=== PATIENT | female | born 1960 | race Caucasian/White ===

== ENCOUNTER → 2017-06-06 | Outpatient (CLI) | payer BC ==
--- NOTE | 2017-06-06 08:35 | MM ---
Reason for exam: additional evaluation requested from prior study. Last mammogram was performed 1 year ago. History: Patient is postmenopausal. Family history of breast cancer in paternal aunt at age 50. Physical Findings: Nurse did not find any significant physical abnormalities on exam. MG 3D Diag Mammo W/Cad JOSSIE Bilateral CC and MLO view(s) were taken. ML view(s) were taken of the right breast. Prior study comparison: June 07, 2016, right breast MG work up mamm w CAD RT. June 02, 2016, bilateral MG screening mammo w CAD. The breast tissue is heterogeneously dense. This may lower the sensitivity of mammography. Right 6mm focal asymmetry lower inner quadrant. These results were verbally communicated with the patient and result sheet given to the patient on 06/06/17. ASSESSMENT: Incomplete: need additional imaging evaluation, BI-RAD 0 RECOMMENDATION: Ultrasound of the right breast.
--- NOTE | 2017-06-06 08:37 | USB ---
Reason for exam: additional evaluation requested from abnormal screening. History: Patient is postmenopausal. Family history of breast cancer in paternal aunt at age 50. US Breast Limited RT Right breast ultrasound demonstrates no cystic or solid lesion seen. These results were verbally communicated with the patient and result sheet given to the patient on 06/06/17. ASSESSMENT: Probably benign, BI-RAD 3 RECOMMENDATION: Follow-up diagnostic mammogram of the right breast in 6 months.
== END | disposition home or self-care (01) ==
LOC: RADMAMWWP 06:59
PROVIDERS: ATTEND Obstetrics & Gynecology
DX: R92.8 Other abnormal and inconclusive findings on diagnostic imaging of breast (principal); R92.2 Inconclusive mammogram
CPT/HCPCS: 76642; G0204; G0279

== ENCOUNTER → 2017-12-26 | Outpatient (CLI) | payer BC ==
--- NOTE | 2017-12-26 15:03 | MM ---
Reason for exam: follow-up at short interval from prior study. Last mammogram was performed 7 months ago. History: Patient is postmenopausal. Family history of breast cancer in paternal aunt at age 50. Physical Findings: Nurse did not find any significant physical abnormalities on exam. MG Diagnostic Mammo RT w CAD CC and MLO view(s) were taken of the right breast. Prior study comparison: June 06, 2017, bilateral MG 3d diag mammo w/cad JOSSIE. June 07, 2016, right breast MG work up mamm w CAD RT. The breast tissue is heterogeneously dense. This may lower the sensitivity of mammography. There is chronic nodularity in the right breast. There is no discrete abnormality. These results were verbally communicated with the patient and result sheet given to the patient on 12/26/17. ASSESSMENT: Benign, BI-RAD 2 RECOMMENDATION: Routine screening mammogram of both breasts in 6 months. Back on schedule.
== END | disposition home or self-care (01) ==
LOC: RADMAMWWP 14:22
PROVIDERS: ATTEND Obstetrics & Gynecology
DX: R92.8 Other abnormal and inconclusive findings on diagnostic imaging of breast (principal)
CPT/HCPCS: 77065

== ENCOUNTER → 2018-07-10 | Outpatient (CLI) | payer BC ==
--- NOTE | 2018-07-11 08:36 | MM ---
Reason for exam: screening (asymptomatic). Last mammogram was performed 6 months ago. History: Patient is postmenopausal. Family history of breast cancer in paternal aunt at age 50. Physical Findings: A clinical breast exam by your physician is recommended on an annual basis and results should be correlated with mammographic findings. MG Screening Mammo w CAD Bilateral CC and MLO view(s) were taken. Prior study comparison: December 26, 2017, right breast MG diagnostic mammo RT w CAD. June 06, 2017, bilateral MG 3d diag mammo w/cad JOSSIE. The breast tissue is heterogeneously dense. This may lower the sensitivity of mammography. No significant changes when compared with prior studies. ASSESSMENT: Negative, BI-RAD 1 RECOMMENDATION: Routine screening mammogram of both breasts in 1 year.
== END | disposition home or self-care (01) ==
LOC: RADMAMWWP 06:59
PROVIDERS: ATTEND Obstetrics & Gynecology
DX: Z12.31 Encounter for screening mammogram for malignant neoplasm of breast (principal); Z80.3 Family history of malignant neoplasm of breast
CPT/HCPCS: 77067

== ENCOUNTER → 2018-11-09 | Outpatient (CLI) | payer BC ==
[2018-11-10 03:53] LABS: T4, Free (Free Thyroxine) 1.1 ng/dL (0.80-1.80)
== END ==
LOC: LABWHC1 15:58
PROVIDERS: ATTEND Obstetrics & Gynecology
DX: Z13.29 Encounter for screening for other suspected endocrine disorder (principal)
CPT/HCPCS: 36415; 84439; 84443; 84479

== ENCOUNTER → 2018-12-11 | Outpatient (CLI) | payer BC ==
--- NOTE | 2018-12-12 04:31 | US ---
EXAMINATION TYPE: US thyroid st tissue head/neck DATE OF EXAM: 12/11/2018 COMPARISON: NONE CLINICAL HISTORY: 58-year-old female E04.9 nontoxic goiter. TECHNIQUE: Multiple sonographic images of the thyroid gland are obtained. FINDINGS: GLAND SIZE: Right Lobe: 3.5 x 2.0 x 1.5 cm Overall Parenchyma: heterogenous Left Lobe: 3.1 x 1.9 x 1.6 cm Overall Parenchyma: heterogeneous Isthmus Thickness: cm NODULES RIGHT: # of nodules measured on right: 0 LEFT: # of nodules measured on left: 1 1. 1.2 X 1.1 x 1.1 cm isoechoic solid nodule at the mid pole with poorly defined margins. This nod ule is wider than tall and shows intranodular vascularity. No prior ISTHMUS: # of nodules measured in the isthmus: 0 Bilateral neck scanned, no evidence of lymphadenopathy. IMPRESSION: Solitary 1.2 cm solid nodule on the left. The decision for FNA should be made on a clinical basis.
== END ==
LOC: RADUSWWP 15:02
PROVIDERS: ATTEND Pediatrics
DX: E04.9 Nontoxic goiter, unspecified (principal)
CPT/HCPCS: 76536

== ENCOUNTER → 2019-05-23 | Outpatient (CLI) | payer BC ==
--- NOTE | 2019-05-23 12:21 | FL ---
EXAMINATION TYPE: FL barium swallow DATE OF EXAM: 05/23/2019 CLINICAL HISTORY: Dysphagia for 8 months. Coughing episodes. Globus sensation the esophagus. TECHNIQUE: A double contrast esophagram is performed utilizing air and barium. A total of seconds o f fluoroscopic time was utilized during procedure. 61 fluoroscopic images were saved. COMPARISON: None FINDINGS: The esophagus shows normal abnormal persistently throughout the examination with tertiary c ontractions both the gravity dependent and independent portions of the examination with delayed propu lsion of the fluid bolus through the esophagus and into the stomach. This results in moderate intraes ophageal reflux. No evidence of hiatal hernia or stricture noted. No significant gastroesophageal re flux was seen during real time performance of this study. Small osteophytes project from the cervical spine anteriorly previously seen slight mass effect on the posterior esophagus. IMPRESSION: Abnormal esophageal motility with tertiary contractions present in the gravity dependent and independent portions of the exam crating moderate intraesophageal reflux. No distal stricture nor hiatal hernia. Considerations are for presbyesophagus or sequela of neuromuscular disorder.
== END | disposition home or self-care (01) ==
LOC: RADUSWWP 10:03
PROVIDERS: ATTEND Pediatrics
DX: K21.9 Gastro-esophageal reflux disease without esophagitis (principal); K22.8 Other specified diseases of esophagus
CPT/HCPCS: 74220

== ENCOUNTER → 2019-07-30 | Outpatient (CLI) | payer BC ==
--- NOTE | 2019-07-31 09:47 | BD ---
EXAMINATION TYPE: Axial Bone Density DATE OF EXAM: 07/30/2019 COMPARISON: 01.24.2015 CLINICAL HISTORY: 58 YR OLD FEMALE....ICD-10 CODE: Z13.820 SCREENING FOR OSTEOPOROSIS Height: 60.5 Weight: 130 FRAX RISK QUESTIONS: NOTHING TO NOTE/PER PATIENT RISK FACTORS HISTORY OF: Active: YES Postmenopausal woman: YES AT AGE 51, NO HORMONES Lost more than 2 inches in height since high school: YES Hyperparathyroidism: NO Adrenal Insufficiency: NO MEDICATIONS: Additional Medications: MULTIVITAMIN Additional History: NOTHING ADDITIONAL TO NOTE HERE EXAM MEASUREMENTS: Bone mineral densitometry was performed using the [employer] System. Bone mineral density as measured about the Lumbar spine is: ----- L1-L4(G/cm2): 1.180 T Score Values are as follows: ----- L1: -0.1 ----- L2: -1.1 ----- L3: 0.2 ----- L4: 0.6 ----- L1-L4: 0.0 Bone mineral density has: Decreased -2.3% since study of: 01.26.2015 Bone mineral density about the R hip (g/cm2): 1.070 Bone mineral density about the L hip (g/cm2): 1.042 T Score values are as follows: -----R Neck: -0.9 -----L Neck: -1.1 -----R Total: 0.5 -----L Total: 0.3 Bone mineral density has: Decreased -4.1% since study of: 01.26.2015 FRAX%s: THERE IS A 7.2% CHANCE FOR A MAJOR OSTEOPOROTIC FX AND A 0.4% FOR HIP.....PROBABILITY FOR F X IN 10 YRS TIME IMPRESSION: Osteopenia (T Score between -2.5 and -1). There is slightly increased risk of fracture and the patient may be considered for treatment. Re-Screen 2-5 years. NOTE: T-SCORE=SD OF THE YOUNG ADULT MEAN.
--- NOTE | 2019-07-31 10:26 | MM ---
Reason for exam: screening (asymptomatic). Last mammogram was performed 1 year and 1 month ago. History: Patient is postmenopausal. Family history of breast cancer in paternal aunt at age 50. Physical Findings: A clinical breast exam by your physician is recommended on an annual basis and results should be correlated with mammographic findings. MG Screening Mammo w CAD Bilateral CC and MLO view(s) were taken. Prior study comparison: July 10, 2018, bilateral MG screening mammo w CAD. December 26, 2017, right breast MG diagnostic mammo RT w CAD. The breast tissue is extremely dense which could obscure a lesion on mammography. No suspicious abnormality. No significant changes when compared with prior studies. ASSESSMENT: Negative, BI-RAD 1 RECOMMENDATION: Routine screening mammogram of both breasts in 1 year.
== END | disposition home or self-care (01) ==
LOC: RADMAMWWP 15:41
PROVIDERS: ATTEND Obstetrics & Gynecology
DX: Z12.31 Encounter for screening mammogram for malignant neoplasm of breast (principal); Z13.820 Encounter for screening for osteoporosis; M85.80 Other specified disorders of bone density and structure, unspecified site
CPT/HCPCS: 77067; 77080

== ENCOUNTER 2019-10-22 10:27 | Day surgery (SDC) | payer BC ==
[2019-10-15 14:17] VITALS: BMI 23.8
[~2019-10-22 10:27] MED LIST: LACTATED RINGERS 1,000 ML IV SCH
[2019-10-22 11:14] VITALS: RESP 16; TEMP 97.3
[2019-10-22] MEDS ORDERED: LIDOCAINE 1% 20 ML VIAL (10MG/ML) FOR IV START INTRADERMA ONE (11:20)
[2019-10-22] MEDS ORDERED: PROPOFOL 10 MG/ML 20 ML VIAL IV ONE (11:45)
[2019-10-22] MEDS ORDERED: fentaNYL (PF) 50 MCG/ML 2 ML AMP ONE (11:45)
[2019-10-22] MEDS ORDERED: MIDAZOLAM 2 MG/2 ML VIAL ONE (11:45)
--- NOTE | 2019-10-22 12:20 | P.PCN ---
Date of Procedure: 10/22/19 Description of Procedure: BRIEF HISTORY: Patient is a 59-year-old female who presents for outpatient EGD for evaluation of episodes of dysphagia. She underwent evaluation with a barium swallow showing normal esophageal motility with tertiary contractions present in the gravity dependent portions of the exam creating a moderate intraesophageal reflux. PROCEDURE PERFORMED: Esophagogastroduodenoscopy with biopsy. PREOPERATIVE DIAGNOSIS: Esophageal dysphagia. ESTIMATED BLOOD LOSS: Minimal. IV sedation per anesthesia. PROCEDURE: After informed consent was obtained, the patient was brought into the endoscopy unit. IV sedation was administered by Anesthesia under continuous monitoring. Initially the Olympus GIF-190 video endoscope was inserted into the mouth. Esophagus intubated without any difficulty. It was gradually advanced into the stomach and duodenum and carefully examined. The bulb and the second part of the duodenum appeared normal, with biopsies taken. The scope at this time was withdrawn to the stomach, adequately insufflated with air, and upon careful examination, mucosa of the antrum, body, cardia and the fundus appeared normal except for some mild scattered erythema in the antrum and body suggestive of mild gastritis with biopsies taken. The scope was then withdrawn into the esophagus. The GE junction was located at 35 cm from the incisors. The esophagus appeared otherwise grossly normal with no strictures or masses however it was somewhat tortuous consistent with presbyesophagus, with biopsies of the midesophagus taken to rule out eosinophilic esophagitis. The patient tolerated the procedure well. IMPRESSION: 1. Mild gastritis antrum body, biopsied. 2. Presbyesophagus, mid esophageal biopsies. 3. Duodenal biopsies. RECOMMENDATIONS: The findings of this examination were discussed with the patient. okay to resume diet. Okay to resume medications. Await pathology from biopsies. Patient can consider trial of Prilosec 20 mg daily for symptomatic relief. If symptoms persist may benefit from esophageal manometry which was discussed with patient at length.
[2019-10-22 12:35] VITALS: BP 122/74; PULSE 61
== END 2019-10-22 12:55 | disposition home or self-care (01) ==
LOC: ORWHC2ENDO 10:27
PROVIDERS: ATTEND Internal Medicine
DX: K22.8 Other specified diseases of esophagus (principal); K29.50 Unspecified chronic gastritis without bleeding; K21.0 Gastro-esophageal reflux disease with esophagitis; Z87.891 Personal history of nicotine dependence
CPT/HCPCS: 88305; 43239; J2250; J3010; J2704

== ENCOUNTER → 2020-01-07 | Outpatient (CLI) | payer BC | END | disposition home or self-care (01) | DX: G31.89 Other specified degenerative diseases of nervous system (principal) | CPT/HCPCS: 70450 ==

== ENCOUNTER 2020-03-17 22:43 | Emergency (ER) | payer BC ==
[2020-03-17 22:58] VITALS: BP 106/69; PULSE 75; RESP 20; TEMP 98.2
[2020-03-17] MEDS ORDERED: LIDOCAINE 1% INJ 10MG/ML (20 ML MDV) SQ ONE (23:34)
[2020-03-17] MEDS ORDERED: DIPH,PERTUS(ACELL)TETVAC-LF 0.5 ML VIAL IM ONE (23:42)
--- NOTE | 2020-03-18 00:02 | XR ---
EXAMINATION TYPE: XR hand complete LT DATE OF EXAM: 03/17/2020 COMPARISON: NONE HISTORY: Laceration TECHNIQUE: 3 views FINDINGS: Metacarpals are intact. I see no fracture nor dislocation. Joint spaces are normal. There a re no erosions. There is no evidence of a foreign body. IMPRESSION: Negative left hand exam.
--- NOTE | 2020-03-18 00:28 | ED ---
General Adult HPI - General Chief complaint: Wound/Laceration Stated complaint: Finger Lacerations Time Seen by Provider: 03/17/20 23:34 Source: patient, RN notes reviewed Mode of arrival: ambulatory Limitations: no limitations - History of Present Illness Initial comments: 59-year-old female presents to the emergency department for a chief complaint of multiple lacerations of the left hand. Patient states her dog was running when she went to grab the leash and the metal clip cut her hand. Patient is not today on tetanus. Patient denies any weakness in these digits. Patient denies any other injuries.Patient has no other complaints at this time including shortness of breath, chest pain, abdominal pain, nausea or vomiting, headache, or visual changes. - Related Data Home Medications Medication Instructions Recorded Confirmed No Known Home Medications 10/15/19 10/22/19 Allergies Allergy/AdvReac Type Severity Reaction Status Date / Time No Known Allergies Allergy Verified 03/17/20 22:57 Review of Systems ROS Statement: Those systems with pertinent positive or pertinent negative responses have been documented in the HPI. ROS Other: All systems not noted in ROS Statement are negative. Past Medical History Additional Past Medical History / Comment(s): sometimes feels like something stuck in throat, had barium swallow in summer-told muscle in throat is weak History of Any Multi-Drug Resistant Organisms: None Reported Past Surgical History: Section Additional Past Surgical History / Comment(s): C/S x2, colonoscopy Past Anesthesia/Blood Transfusion Reactions: No Reported Reaction Past Psychological History: No Psychological Hx Reported Smoking Status: Never smoker Past Alcohol Use History: Occasional Past Drug Use History: None Reported - Past Family History Mother Family Medical History: No Reported History General Exam - General Exam Comments Initial Comments: Patient has a 2 cm laceration over the palmar aspect of the left third digit proximal phalanx. Patient also has a 4 cm laceration noted over the left fourth digit palmar aspect middle phalanx. Full range of motion in these digits. No obvious tendon injury. No evidence for foreign body. Limitations: no limitations General appearance: alert, in no apparent distress Head exam: Present: atraumatic, normocephalic, normal inspection Eye exam: Present: normal appearance, PERRL, EOMI. Absent: scleral icterus, conjunctival injection, periorbital swelling ENT exam: Present: normal exam, mucous membranes moist Neck exam: Present: normal inspection, full ROM. Absent: tenderness, meningismus, lymphadenopathy Respiratory exam: Present: normal lung sounds bilaterally. Absent: respiratory distress, wheezes, rales, rhonchi, stridor Cardiovascular Exam: Present: regular rate, normal rhythm, normal heart sounds. Absent: systolic murmur, diastolic murmur, rubs, gallop, clicks Course Vital Signs 03/17/20 22:54 Temperature 98.2 F Pulse Rate 75 Respiratory 20 Rate Blood Pressure 106/69 O2 Sat by Pulse 99 Oximetry Procedures - Laceration Laceration #1 Consent Obtained: verbal consent Indication: laceration Site: hand (Third digit proximal phalanx palmar aspect of the left hand) Size (cm): 3 Description: linear Depth: simple, single layer Anesthetic Used: lidocaine 1% Anesthesia Technique: local infiltration Amount (mls): 2 Pre-repair: wound explored, irrigated extensively (with sterile water), deep structures intact Type of Sutures: nylon Size of Sutures: 5-0 Number of Sutures: 4 Technique: simple, interrupted Patient Tolerated Procedure: well, no complications Laceration #2 Consent Obtained: verbal consent Indication: laceration Site: hand (Fourth digit middle phalanx palmar aspect) Size (cm): 4 Description: linear Depth: simple, single layer Anesthetic Used: lidocaine 1% Anesthesia Technique: local infiltration Amount (mls): 3 Pre-repair: wound explored, irrigated extensively, deep structures intact Type of Sutures: nylon Size of Sutures: 5-0 Number of Sutures: 6 Technique: simple, interrupted Patient Tolerated Procedure: well, no complications Medical Decision Making - Medical Decision Making X-rays are negative for foreign body. No evidence for deep structure injury. Full strength in these third and fourth digits. Lacerations repaired. She will follow up with primary care in 2 days for recheck. Will monitor for signs of infection. Disposition Clinical Impression: Laceration Disposition: HOME SELF-CARE Condition: Good Instructions (If sedation given, give patient instructions): Care For Your Stitches (ED), Laceration (ED) Additional Instructions: Please monitor for signs of infection as discussed and return if these occur. Otherwise return in 7-10 days for suture removal. Follow up with primary care in 1-2 days. Is patient prescribed a controlled substance at d/c from ED?: No Referrals: Refugio Shin MD [Primary Care Provider] - 1-2 days Time of Disposition: 00:27
== END 2020-03-18 00:35 | disposition home or self-care (01) ==
LOC: EC 22:43
DX: S61.213A Laceration without foreign body of left middle finger without damage to nail, initial encounter (principal); S61.215A Laceration without foreign body of left ring finger without damage to nail, initial encounter; Z23 Encounter for immunization; W26.8XXA Contact with other sharp object(s), not elsewhere classified, initial encounter
CPT/HCPCS: 99283; 12002; 90471; 73130; 90715; J2001

== ENCOUNTER → 2020-05-01 | Outpatient (CLI) | payer BC ==
--- NOTE | 2020-05-01 12:47 | MR ---
EXAMINATION TYPE: MR angio head wo con DATE OF EXAM: 05/01/2020 COMPARISON: Correlation CT brain 01/07/2020 HISTORY: 59-year-old female Dizziness, family hx aneurysm TECHNIQUE: High-resolution 3-D [id number] imaging of the [place] was performed. Rotation al 3-D reconstructions generated on a dedicated independent workstation. 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 The right vertebral and basilar arteries are paten t. On the right, there is persistent origin of the right posterior cerebral artery. On the left, there is a large posterior communicating artery. The internal carotid arteries are patent. Remainder of the anterior circulation is patent. No significant stenosis. No aneurysmal change is seen. IMPRESSION: 1. 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 Consider CT angiography of the neck t o further evaluate. 2. Some congenital variation as above. No significant stenosis or aneurysmal change is seen.
== END | disposition home or self-care (01) ==
LOC: RADMRIMAIN 11:42
PROVIDERS: ATTEND Physician Assistant
DX: R93.0 Abnormal findings on diagnostic imaging of skull and head, not elsewhere classified (principal)
CPT/HCPCS: 70544

== ENCOUNTER → 2020-05-20 | Outpatient (CLI) | payer BC ==
--- NOTE | 2020-05-20 15:34 | CT ---
EXAMINATION TYPE: CT angio neck DATE OF EXAM: 05/20/2020 HISTORY: abn MRA of brain COMPARISON: CT DLP: 163.9 mGycm. Automated Exposure Control for Dose Reduction was Utilized. TECHNIQUE: CTA scan of the neck is performed with IV Contrast, patient injected with 65 mL of Isovue 370, axial images are obtained, coronal and sagittal reformatted images are reviewed. Three-D recons tructed images are created on an independent workstation and reviewed. FINDINGS: Carotid/Vascular Structures: Left vertebral artery is hypoplastic. Right vertebral artery is patent a nd dominant. No evident dissection. 3 super aortic branch vessels are patent. Left and right common c arotid arteries are patent, internal and external carotid arteries are patent. No stenosis by NASCET criteria of the proximal internal carotid arteries. Other: Degenerative disc changes are present in the visualized spine. IMPRESSION: No significant abnormality is seen. Normal variant anatomy.
== END | disposition home or self-care (01) ==
LOC: RADCTMAIN 13:51
PROVIDERS: ATTEND Pediatrics
DX: R93.0 Abnormal findings on diagnostic imaging of skull and head, not elsewhere classified (principal)
CPT/HCPCS: 70498; Q9967

== ENCOUNTER → 2020-07-07 | Outpatient (CLI) | payer BC | END | disposition home or self-care (01) | LOC: LABWHC1 11:28 | PROVIDERS: ATTEND Pediatrics | DX: Z20.828 Contact with and (suspected) exposure to other viral communicable diseases (principal) | CPT/HCPCS: U0003; C9803 ==

== ENCOUNTER → 2020-08-01 | Outpatient (CLI) | payer BC ==
--- NOTE | 2020-08-05 13:39 | MM ---
Reason for exam: screening (asymptomatic). Last mammogram was performed 1 year ago. History: Patient is postmenopausal. Family history of breast cancer in paternal aunt at age 50. Physical Findings: A clinical breast exam by your physician is recommended on an annual basis and results should be correlated with mammographic findings. MG Screening Mammo w CAD Bilateral CC and MLO view(s) were taken. Prior study comparison: July 30, 2019, bilateral MG screening mammo w CAD. July 10, 2018, bilateral MG screening mammo w CAD. The breast tissue is heterogeneously dense. This may lower the sensitivity of mammography. No significant changes when compared with prior studies. ASSESSMENT: Negative, BI-RAD 1 RECOMMENDATION: Routine screening mammogram of both breasts in 1 year.
== END | disposition home or self-care (01) ==
LOC: RADMAMWWP 14:57
PROVIDERS: ATTEND Obstetrics & Gynecology
DX: Z12.31 Encounter for screening mammogram for malignant neoplasm of breast (principal)
CPT/HCPCS: 77067

== ENCOUNTER → 2020-09-10 | Outpatient (CLI) | payer BC ==
--- NOTE | 2020-09-10 18:37 | US ---
EXAMINATION TYPE: US thyroid st tissue head/neck DATE OF EXAM: 09/10/2020 COMPARISON: NONE CLINICAL HISTORY: E04.1 thyroid nodule. Thyroid nodule GLAND SIZE: Right Lobe: 3.3 x 1.6 x 1.6 cm Overall Parenchyma: homogenous Left Lobe: 3.3 x 1.9 x 1.7 cm Overall Parenchyma: homogeneous Isthmus Thickness: .2 cm NODULES RIGHT: # of nodules measured on right: 0 LEFT: # of nodules measured on left: 1 1. 1.7 X 1.7 x 1.2 cm isoechoic solid nodule at the mid pole with well-defined margins; . This nod ule is wider than tall and shows intranodular vascularity. Prior size: 1.2 x 1.1 x 1.1 cm ISTHMUS: # of nodules measured in the isthmus: 0 Bilateral neck scanned, no evidence of lymphadenopathy. IMPRESSION: Left thyroid nodule TR 3 likely suspicious, follow-up ultrasound recommended at 1, 3, 5 years
== END | disposition home or self-care (01) ==
LOC: RADUSWWP 15:42
PROVIDERS: ATTEND Pediatrics
DX: E04.1 Nontoxic single thyroid nodule (principal)
CPT/HCPCS: 76536

== ENCOUNTER → 2021-09-14 | Outpatient (CLI) | payer BC ==
--- NOTE | 2021-09-15 14:09 | MM ---
Reason for exam: screening (asymptomatic). Last mammogram was performed 1 year and 1 month ago. History: Patient is postmenopausal. Family history of breast cancer in paternal aunt at age 50. Physical Findings: A clinical breast exam by your physician is recommended on an annual basis and results should be correlated with mammographic findings. MG Screening Mammo w CAD Bilateral CC and MLO view(s) were taken. Prior study comparison: August 01, 2020, bilateral MG screening mammo w CAD. July 30, 2019, bilateral MG screening mammo w CAD. The breast tissue is heterogeneously dense. This may lower the sensitivity of mammography. There is no discrete abnormality. ASSESSMENT: Negative, BI-RAD 1 RECOMMENDATION: Routine screening mammogram of both breasts in 1 year.
== END | disposition home or self-care (01) ==
LOC: RADMAMWWP 09:26
PROVIDERS: ATTEND Obstetrics & Gynecology
DX: Z12.31 Encounter for screening mammogram for malignant neoplasm of breast (principal); Z78.0 Asymptomatic menopausal state; Z80.3 Family history of malignant neoplasm of breast
CPT/HCPCS: 77067

== ENCOUNTER 2022-02-25 07:57 | Day surgery (SDC) | payer BC ==
[2022-02-24 08:12] VITALS: BMI 24.7
[~2022-02-25 07:57] MED LIST changes: +LIDOCAINE 1% (10MG/ML) FOR IV START INTRADERMA PRN
[2022-02-25] MEDS ORDERED: LACTATED RINGERS 1,000 ML IV ONE (08:28)
[2022-02-25 08:44] VITALS: TEMP 97.8
[2022-02-25] MEDS ORDERED: PROPOFOL 10 MG/ML 20 ML VIAL IV ONE (08:54)
[2022-02-25] MEDS ORDERED: LIDOCAINE 2% INJ 20 MG/ML (2 ML VIAL) ONE (08:54)
--- NOTE | 2022-02-25 08:55 | P.GSHP ---
History of Present Illness H&P Date: 02/25/22 Chief Complaint: Screening colonoscopy This is a 61-year-old female presents today for screening colonoscopy. Patient denies a significant GI complaints. Past Medical History Additional Past Medical History / Comment(s): hx 2019 had feeling of something stuck in throat, had barium swallow-told muscle in throat is weak-resolved History of Any Multi-Drug Resistant Organisms: None Reported Past Surgical History: Section Additional Past Surgical History / Comment(s): C/S x2, colonoscopy Past Anesthesia/Blood Transfusion Reactions: No Reported Reaction Smoking Status: Former smoker - Past Family History Mother Family Medical History: No Reported History Medications and Allergies Home Medications Medication Instructions Recorded Confirmed Type No Known Home Medications 10/15/19 02/24/22 History Allergies Allergy/AdvReac Type Severity Reaction Status Date / Time No Known Allergies Allergy Verified 02/24/22 08:07 Surgical - Exam Vital Signs Temp Pulse Resp BP Pulse Ox 97.8 F 78 18 137/67 97 02/25/22 08:42 02/25/22 08:42 02/25/22 08:42 02/25/22 08:42 02/25/22 08:42 - General well developed, well nourished, no distress - Eyes PERRL - ENT normal pinna - Neck no masses - Respiratory normal expansion - Cardiovascular Rhythm: regular - Abdomen Abdomen: soft, non tender Assessment and Plan Assessment: We'll perform screening colonoscopy
--- NOTE | 2022-02-25 09:13 | P.OP ---
Date of Procedure: 02/25/22 Preoperative Diagnosis: Screening colonoscopy Postoperative Diagnosis: Normal colon Procedure(s) Performed: Colonoscopy Anesthesia: MAC Surgeon: Brien Mathews Pathology: none sent Condition: stable Disposition: PACU Description of Procedure: The patient's placed on the endoscopy table in the lateral position. She received IV sedation. The digital rectal exam performed. This revealed no ebonized. Flexible colonoscope was then placed patient anus and passed throughout the entire colon. The ileocecal valve was visualized. The cecum, ascending and transverse colon appeared normal. The descending and sigmoid colon appeared normal. Scope was brought back the rectum and this appeared normal. Scope withdrawn for patient.
[2022-02-25 09:20] VITALS: RESP 16
[2022-02-25 09:35] VITALS: BP 131/84; PULSE 79
== END 2022-02-25 09:48 | disposition home or self-care (01) ==
LOC: ORWHC2ENDO 07:57
PROVIDERS: ATTEND Surgery
DX: Z12.11 Encounter for screening for malignant neoplasm of colon (principal); Z87.891 Personal history of nicotine dependence
CPT/HCPCS: 45378; J2704; J2001

== ENCOUNTER → 2022-09-23 | Outpatient (CLI) | payer BC ==
--- NOTE | 2022-09-23 17:26 | BD ---
EXAMINATION TYPE: Axial Bone Density DATE OF EXAM: 09/23/2022 COMPARISON: 2019 CLINICAL HISTORY: 62 years year old Female. ICD-10 CODE: M85.88 DISRD OF BONE DENSITY Height: 60.5 Weight: 132.8 FRAX RISK QUESTIONS: Alcohol (3 or more units per day): NO Family History (Parent hip fracture): NO Glucocorticoids (More than 3mos): NO History of Fracture in Adulthood: NO Secondary Osteoporosis: 1. Type 1 Diabetes: NO 2. Hyperthyroidism: NO 3. Menopause before 45: NO 4. Malnutrition: NO 5. Chronic liver disease: NO Rheumatoid Arthritis: NO Current Tobacco Use: NO RISK FACTORS HISTORY OF: Hip Fracture (Right/Left): NO Spine Fracture: NO History of Wrist Fracture: NO Surgery to Spine/Hip(right/left)/Wrist (right/left): NO Family History of Osteoporosis: NO Active: YES Diet low in dairy products/other sources of calcium: YES Postmenopausal woman: YES Take estrogen and/or progesterone medications: NO Lost more than 2 inches in height since high school: NO Frequent falls: NO Poor Health: NO Hyperparathyroidism: NO Adrenal Insufficiency: NO MEDICATIONS: Prednisone or other steroids: NO Thyroid Medications: NO Osteoporosis Medications: NO Additional Medications: CALCIUM, VIT D EXAM MEASUREMENTS: Bone mineral densitometry was performed using the [employer] System. Bone mineral density as measured about the Lumbar spine is: ----- L1-L4(G/cm2): 1.170 T Score Values are as follows: ----- L1: -0.2 ----- L2: -1.1 ----- L3: 0.3 ----- L4: 0.4 ----- L1-L4: -0.1 Bone mineral density has: DECREASED -0.7 % since study of: 07/30/2019 Bone mineral density about the R hip (g/cm2): 0.879 Bone mineral density about the L hip (g/cm2): 0.876 T Score values are as follows: -----R Neck: -1.1 -----L Neck: -1.2 -----R Total: 0.3 -----L Total: 0.2 Bone mineral density has: DECREASED -2.1 % since study of: 07/30/2019 FRAX%s: The graph provided illustrates a 8.0% chance for a major osteoporotic fx and a 0.6% chance fo r the hips probability for fx in 10 years time. IMPRESSION: Osteopenia (T Score between -2.5 and -1). There is slightly increased risk of fracture and the patient may be considered for treatment. Re-Screen 2-5 years. NOTE: T-SCORE=SD OF THE YOUNG ADULT MEAN.
--- NOTE | 2022-09-24 16:29 | MM ---
Reason for Exam: Screening (asymptomatic). Last mammogram was performed 1 year(s) and 1 month(s) ago. Patient History: Menarche at age 15. First Full-Term at age 26. Postmenopausal. Patient has history of breast feeding. Paternal aunt had breast cancer, age 50. Risk Values: Gregoria 5 year model risk: 1.6%. NCI Lifetime model risk: 6.8%. Prior Study Comparison: 07/30/2019 Bilateral Screening Mammogram, [facility]. 08/01/2020 Bilateral Screening Mammogram, [facility]. 09/14/2021 Bilateral Screening Mammogram, [facility]. Tissue Density: The breast tissue is heterogeneously dense. This may lower the sensitivity of mammography. Findings: Analyzed By CAD. Pattern appears symmetrical and stable. No significant interval change is evident. No suspicious groups of microcalcifications, spiculated or lobular masses, architectural distortion or other secondary signs of malignancy are mammographically apparent. Overall Assessment: Benign, BI-RAD 2 Management: Screening Mammogram of both breasts in 1 year. A negative mammogram report should not preclude additional follow up of suspicious palpable abnormalities. Patient should continue monthly self breast exam. A clinical breast exam by your physician is recommended on an annual basis and results should be correlated with mammographic findings. Electronically signed and approved by: Florentino Nuñez D.O. Radiologis
== END | disposition home or self-care (01) ==
LOC: RADMAMWWP 09:35
PROVIDERS: ATTEND Obstetrics & Gynecology
DX: Z12.31 Encounter for screening mammogram for malignant neoplasm of breast (principal); M85.89 Other specified disorders of bone density and structure, multiple sites; Z78.0 Asymptomatic menopausal state; Z79.52 Long term (current) use of systemic steroids; Z80.3 Family history of malignant neoplasm of breast
CPT/HCPCS: 77063; 77067; 77080

== ENCOUNTER → 2023-02-03 | Outpatient (CLI) | payer BC ==
--- NOTE | 2023-02-03 09:17 | US ---
EXAMINATION TYPE: US abdomen complete DATE OF EXAM: 02/03/2023 COMPARISON: NONE CLINICAL HISTORY: R10.11 RIGHT UPPER QUADRANT PAIN. Dull ache RUQ TECHNIQUE: Multiple sonographic images of the abdomen are obtained. FINDINGS: EXAM MEASUREMENTS: Liver Length: 12.0 cm Gallbladder Wall: 0.2 cm CBD: 0.7 cm Spleen: 9.8 cm Right Kidney: 9.8 x 3.8 x 4.7 cm Left Kidney: 10.2 x 5.0 x 4.4 cm Pancreas: Tail obscured by overlying bowel gas Liver: slightly heterogeneous, scattered echogenic foci could be some hepatic calcification. Gallbladder: multiple folds, no evidence of stones Evidence for sonographic Price's sign: no CBD: upper limits of normal Spleen: wnl Right Kidney: no evidence of hydronephrosis Left Kidney: no evidence of hydronephrosis Upper IVC: wnl Abd Aorta: wnl IMPRESSION: 1. No suspicious acute changes ultrasound abdomen
--- NOTE | 2023-02-03 09:20 | XR ---
EXAMINATION TYPE: XR shoulder complete RT, XR clavicle RT DATE OF EXAM: 02/03/2023 CLINICAL HISTORY: pain TECHNIQUE: Three views of the right shoulder are obtained. 2 views of the right clavicle are also kaba bmitted. COMPARISON: None FINDINGS: There is no acute fracture/dislocation evident. The acromioclavicular and glenohumeral annmarie int spaces appear within normal limits. The visualized ribs are intact and unremarkable. IMPRESSION: 1. There is no acute fracture or dislocation. ICD 10 NO FRACTURE, INITIAL EVALUATION
== END | disposition home or self-care (01) ==
LOC: RADUSWWP 08:07
PROVIDERS: ATTEND Pediatrics
DX: R10.11 Right upper quadrant pain (principal); M25.511 Pain in right shoulder
CPT/HCPCS: 76700

== ENCOUNTER → 2023-07-14 | Outpatient (CLI) | payer BC ==
--- NOTE | 2023-07-15 07:49 | XR ---
EXAMINATION TYPE: XR tibia fibula LT DATE OF EXAM: 07/14/2023 COMPARISON: NONE HISTORY: Pain TECHNIQUE: Two views are submitted. FINDINGS: The osseous structures are intact. The joint spaces are preserved. IMPRESSION: 1. No acute osseous abnormality.
--- NOTE | 2023-07-15 07:50 | XR ---
EXAMINATION TYPE: XR knee 4V LT DATE OF EXAM: 07/14/2023 COMPARISON: NONE HISTORY: Pain TECHNIQUE: 4 views are submitted. FINDINGS: Osseous structures are intact. No acute fracture seen. Tiny bony density adjacent lateral, likely c hronic. Mild narrowing of the medial compartment knee joint and patellofemoral joint. IMPRESSION: 1. No acute fracture or dislocation.
== END | disposition home or self-care (01) ==
LOC: RADXRMAIN 17:51
PROVIDERS: ATTEND Physician Assistant
DX: M79.605 Pain in left leg (principal)

== ENCOUNTER → 2023-09-26 | Outpatient (CLI) | payer BC ==
--- NOTE | 2023-09-26 15:13 | MM ---
Reason for Exam: Screening (asymptomatic). Last screening mammogram was performed 12 month(s) ago. Patient History: Menarche at age 15. First Full-Term at age 26. Postmenopausal. Patient has history of breast feeding. Paternal aunt had breast cancer, age 50. Risk Values: Gregoria 5 year model risk: 1.6%. NCI Lifetime model risk: 6.6%. Prior Study Comparison: 08/01/2020 Bilateral Screening Mammogram, [facility]. 09/14/2021 Bilateral Screening Mammogram, [facility]. 09/23/2022 Bilateral MG 3D screening mammo w/cad, [facility]. Tissue Density: The breast tissue is heterogeneously dense. This may lower the sensitivity of mammography. Findings: Analyzed By CAD. Pattern appears symmetrical and stable. No significant interval changes. No suspicious groups of microcalcifications, spiculated or lobular masses, architectural distortion or other secondary signs of malignancy are mammographically apparent. Overall Assessment: Benign, BI-RAD 2 Management: Screening Mammogram of both breasts in 1 year. A negative mammogram report should not preclude additional follow up of suspicious palpable abnormalities. Patient should continue monthly self breast exam. A clinical breast exam by your physician is recommended on an annual basis and results should be correlated with mammographic findings. Electronically signed and approved by: Florentino Nuñez D.O. Radiologis
== END | disposition home or self-care (01) ==
LOC: RADMAMWWP 06:48
PROVIDERS: ATTEND Obstetrics & Gynecology
DX: Z12.31 Encounter for screening mammogram for malignant neoplasm of breast (principal); Z78.0 Asymptomatic menopausal state; Z80.3 Family history of malignant neoplasm of breast
CPT/HCPCS: 77067